=== PATIENT | female | born 1950 | race Caucasian/White ===

== ENCOUNTER 2018-08-01 18:13 | Emergency (ER) | payer MEDICARE, OTHER ==
[~2018-08-01] VITALS: Ht 157.5 cm; Wt 62.6 kg
[~2018-08-01 18:13] MED LIST: ANAS1TAB PO; ASCO-78 PO; CALC600T PO; CYCL-331 PO; HYDR-2155 PO; HYDR50TA6 PO; LEVO100T5 PO; MULT1TAB77 PO; NAPR250T6 PO; OMEG1CAP6 PO; PANT40TA5 PO; VENL37.56 PO
[2018-08-01 18:49] LABS: BASO # 0.1 x10^3/uL (0.0-0.2); BASO % 1 % (0-3); EOS # 0.7 x10^3/uL (0.0-0.7); EOS % 8 % (0-3); HEMATOCRIT 39.8 % (36.0-47.0); HEMOGLOBIN 12.9 g/dL (12.0-15.5); LYMPH # 3.7 x10^3/uL (1.0-4.8); LYMPH % 40 % (24-48); MEAN CORPUSCULAR HEMOGLOBIN 28 pg (25-35); MEAN CORPUSCULAR HGB CONC 33 g/dL (31-37); MEAN CORPUSCULAR VOLUME 85 fL (79-100); MONO # 0.8 x10^3/uL (0.0-1.1); MONO % 9 % (0-9); NEUT % 43 % (31-73); PLATELET COUNT 272 x10^3/uL (140-400); RED BLOOD COUNT 4.68 x10^6/uL (3.50-5.40); RED CELL DISTRIBUTION WIDTH 19.7 % (11.5-14.5); WHITE BLOOD COUNT 9.3 x10^3/uL (4.0-11.0)
[2018-08-01] MEDS: MORPHINE SULFATE 2 MG/ML DISP.SYRIN. IV/SQ PRN (18:50)
[2018-08-01] MEDS: ASPIRIN 325 MG TABLET PO ONE (18:50)
[2018-08-01] MEDS: NITROGLYCERIN SUBLINGUAL 0.4 MG BOTTLE OF 25. SL PRN (18:51)
[2018-08-01 18:59] LABS: CALCIUM 9.8 mg/dL (8.5-10.1); CREATININE 1.2 mg/dL (0.6-1.0); GFR 44.5; POTASSIUM 4.2 mmol/L (3.5-5.1)
[2018-08-01] MEDS ORDERED: ENOXAPARIN ** NOTE DOSE ** SYRINGE SQ ONE (19:16)
--- NOTE | 2018-08-01 19:22 | PHYS DOC ---
Adult General Chief Complaint Chief Complaint chest pain HPI HPI 68 years old female with history of coronary artery disease presented to the emergency department with chest pain substernal radiating to her left arm associated with shortness breath started about 20 minutes ago rated 10 out of 10 described as pressure happened while driving not related to exertion responded to sublingual nitroglycerin emergency department Review of Systems Review of Systems Constitutional: Denies fever or chills [] Eyes: Denies change in visual acuity, redness, or eye pain [] HENT: Denies nasal congestion or sore throat [] Respiratory: Denies cough or shortness of breath [] Cardiovascular: No additional information not addressed in HPI [] GI: Denies abdominal pain, nausea, vomiting, bloody stools or diarrhea [] : Denies dysuria or hematuria [] Musculoskeletal: Denies back pain or joint pain [] Integument: Denies rash or skin lesions [] Neurologic: Denies headache, focal weakness or sensory changes [] Endocrine: Denies polyuria or polydipsia [] All other systems were reviewed and found to be within normal limits, except as documented in this note. Current Medications Current Medications Current Medications Medications (Trade) Dose Ordered Sig/Mary Start Time Stop Time Status Last Admin Dose Admin Aspirin (Aleshia Aspirin) 325 mg 1X ONCE 08/01/18 19:00 08/01/18 19:01 DC 08/01/18 18:50 325 MG Clopidogrel Bisulfate (Plavix) 300 mg 1X ONCE 08/01/18 19:30 08/01/18 19:31 Enoxaparin Sodium (Lovenox 60mg Syringe) 60 mg 1X ONCE 08/01/18 19:15 08/01/18 19:16 UNV Heparin Sodium (Porcine) (Heparin Sodium) 4,000 unit 1X ONCE 08/01/18 19:30 08/01/18 19:30 DC Morphine Sulfate (Morphine 2mg Syringe) 2 mg PRN Q15MIN PRN 08/01/18 18:30 08/02/18 18:29 08/01/18 18:50 2 MG Nitroglycerin (Nitrostat) 0.4 mg PRN Q5MIN PRN 08/01/18 18:30 08/02/18 18:29 08/01/18 18:51 0.4 MG Nitroglycerin/ Dextrose 250 ml @ 3 mls/hr 1X ONCE 08/01/18 19:00 08/05/18 06:19 Ondansetron HCl (Zofran Odt) 4 mg 1X ONCE 08/01/18 19:30 08/01/18 19:31 Allergies Allergies Allergies Coded Allergies Type Severity Reaction Last Updated Verified Tetracyclines Allergy Severe I went into a coma for a while. 11/15/13 Yes Physical Exam Physical Exam Constitutional: Well developed, well nourished, no acute distress, non-toxic appearance. [] HENT: Normocephalic, atraumatic, bilateral external ears normal, oropharynx moist, no oral exudates, nose normal. [] Eyes: PERRLA, EOMI, conjunctiva normal, no discharge. [] Neck: Normal range of motion, no tenderness, supple, no stridor. [] Cardiovascular:Heart rate regular rhythm, no murmur [] Lungs & Thorax: Bilateral breath sounds clear to auscultation [] Abdomen: Bowel sounds normal, soft, no tenderness, no masses, no pulsatile masses. [] Skin: Warm, dry, no erythema, no rash. [] Back: No tenderness, no CVA tenderness. [] Extremities: No tenderness, no cyanosis, no clubbing, ROM intact, no edema. [] Neurologic: Alert and oriented X 3, normal motor function, normal sensory function, no focal deficits noted. [] Psychologic: Affect normal, judgement normal, mood normal. [] Current Patient Data Vital Signs Vital Signs Date Time Temp Pulse Resp B/P (MAP) Pulse Ox O2 Delivery O2 Flow Rate FiO2 08/01/18 18:51 56 181/78 08/01/18 18:50 16 99 Lab Results Laboratory Tests Test 08/01/18 18:20 White Blood Count 9.3 x10^3/uL (4.0-11.0) Red Blood Count 4.68 x10^6/uL (3.50-5.40) Hemoglobin 12.9 g/dL (12.0-15.5) Hematocrit 39.8 % (36.0-47.0) Mean Corpuscular Volume 85 fL (79-100) Mean Corpuscular Hemoglobin 28 pg (25-35) Mean Corpuscular Hemoglobin Concent 33 g/dL (31-37) Red Cell Distribution Width 19.7 % (11.5-14.5) H Platelet Count 272 x10^3/uL (140-400) Neutrophils (%) (Auto) 43 % (31-73) Lymphocytes (%) (Auto) 40 % (24-48) Monocytes (%) (Auto) 9 % (0-9) Eosinophils (%) (Auto) 8 % (0-3) H Basophils (%) (Auto) 1 % (0-3) Neutrophils # (Auto) 4.0 x10^3uL (1.8-7.7) Lymphocytes # (Auto) 3.7 x10^3/uL (1.0-4.8) Monocytes # (Auto) 0.8 x10^3/uL (0.0-1.1) Eosinophils # (Auto) 0.7 x10^3/uL (0.0-0.7) Basophils # (Auto) 0.1 x10^3/uL (0.0-0.2) Sodium Level 140 mmol/L (136-145) Potassium Level 4.2 mmol/L (3.5-5.1) Chloride Level 101 mmol/L (98-107) Carbon Dioxide Level 28 mmol/L (21-32) Anion Gap 11 (6-14) Blood Urea Nitrogen 17 mg/dL (7-20) Creatinine 1.2 mg/dL (0.6-1.0) H Estimated GFR (Cockcroft-Gault) 44.5 Glucose Level 95 mg/dL (70-99) Calcium Level 9.8 mg/dL (8.5-10.1) Troponin I Quantitative < 0.017 ng/mL (0-0.055) Lipase 237 U/L (73-393) EKG EKG [] Radiology/Procedures Radiology/Procedures [] Course & Med Decision Making Course & Med Decision Making Emergency department patient received aspirin, Plavix, Lovenox, nitroglycerin, chest pain improved case discussed with hospitalist patient to be admitted to [facility] [] Final Impression Final Impression [] Problems: (1) Unstable angina Dragon Disclaimer Dragon Disclaimer This electronic medical record was generated, in whole or in part, using a voice recognition dictation system. LANCE WEBB MD Aug 01, 2018 19:21
[2018-08-01] MEDS: ENOXAPARIN ** NOTE DOSE ** SYRINGE SQ ONE (19:26)
[2018-08-01] MEDS: NITROGLYCERIN PREMIX 250 ML IV ONE (19:26)
[2018-08-01] MEDS: CLOPIDOGREL BISULFATE 75 MG TABLET PO ONE (19:27)
[2018-08-01] MEDS ORDERED: HEPARIN for IV BOLUS 10,000 UNIT/10 ML VIAL. IV ONE (19:30)
[2018-08-01] MEDS: ONDANSETRON ODT 4 MG TAB.RAPDIS PO ONE (19:30)
--- NOTE | 2018-08-01 20:35 | RAD ---
AP portable chest 08/01/2018. Reason for exam: Chest pain. Comparison is made with a study of 11/15/2013. Depth of inspiration is shallower. No new infiltrate or effusion is seen. Heart size and pulmonary vascularity appear normal. A hiatal hernia is again seen. IMPRESSION: No apparent acute abnormality. Electronically signed by: Troy Alicea Jr., MD (08/01/2018 8:32 PM) [facility]
[2018-08-01 22:50] VITALS: BP 147/82
--- NOTE | 2018-08-03 12:22 | EKG ---
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
--- NOTE | 2018-08-03 12:33 | EKG ---
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
== END 2018-08-01 22:05 | disposition short-term general hospital (02) ==
LOC: ER 18:13
DX: I20.0 Unstable angina (principal); Z88.1 Allergy status to other antibiotic agents
CPT/HCPCS: 36415; 71045; 80048; 83690; 84484; 85025; 93005; 96365; 96366; 96372; 96375; 99285; J1650; J2270; J3490

== ENCOUNTER → 2018-08-09 | Outpatient (CLI) | payer MEDICARE, OTHER ==
[2018-08-01 22:50] VITALS: BP 147/82
--- NOTE | 2018-08-09 16:54 | RAD ---
EXAM: Nuclear gastric emptying scan. HISTORY: Incomplete gastric emptying. COMPARISON: None. TECHNIQUE: Serial static images were obtained over the stomach following oral administration of 1 mCi of 99m-Tc sulfur colloid in an egg based meal. FINDINGS: The stomach empties into the small bowel without evidence of reflux in the area of the esophagus. There is 24 percent gastric emptying at 59 minutes, 47 percent gastric emptying at 114 minutes, 72 percent gastric emptying at 171 minutes and 88 percent gastric emptying at 236 minutes. The gastric emptying half-time is nearly 2 hours. IMPRESSION: Delayed gastric emptying half-time. Electronically signed by: Orly Coronado MD (08/09/2018 4:51 PM) [facility]
== END | disposition home or self-care (01) ==
LOC: NM 07:34
PROVIDERS: ATTEND Internal Medicine Gastroenterology
DX: K30 Functional dyspepsia (principal)
CPT/HCPCS: 78264; A9541

== ENCOUNTER 2019-10-29 00:14 | Emergency (ER) | payer MEDICARE ==
[~2019-10-29] VITALS: Ht 158.8 cm; Wt 62.5 kg
[~2019-10-29 00:14] MED LIST changes: -PANT40TA5 PO; +PANT40TA6 PO; +VENL-109 PO; -VENL37.56 PO
--- NOTE | 2019-10-29 00:20 | PHYS DOC ---
Past History Past Medical History: Angina, Anxiety, CAD, Cancer, GERD, High Cholesterol, Hypertension, Hypothyroid, TIA Past Medical History Breast Cancer 2011 Past Surgical History: Cholecystectomy Past Surgical History Mastectomy Lt. Smoking: Non-smoker Alcohol Use: None Drug Use: None General Adult HPI: HPI: "..I ve had chest pain..here in the center... since about 6...it s been constant..I take a aspirin at home..." Patient is a 69 year old female who presents with central chest pain that has been constant since 1800. Patient currently rates her pain in the center of her chest as 8 out of 10. Nothing has seemed to make the pain better. Patient has been diaphoretic. Patient has history of previous AR in 2017 and episode of angina in which she had a heart cath in July 2018. Patient at that time she seen Dr. Plummer cardiology.. Patient denies any recent changes in meds. No history of travel outside [facility] no significant ill contacts. Does have past medical history of invasive breast cancer with extensive chemotherapy and mastectomy on the left and 2011. Patient had a cholecystectomy in 2010. Patient does have a history of elevated cholesterol, arthritis, with chronic pain, spinal stenosis with sciatica and peripheral neuropathy, hiatal hernia, hypothyroidism, hypertension, and a TIA. There is a family history of ruptured aortic aneurysm and father age 84 he also has history of stroke, TIA and diabetes. Patient has never used tobacco or alcohol. Pt. follows with as primary. Review of Systems: Review of Systems: Constitutional: Denies fever or chills Eyes: Denies change in visual acuity HENT: Denies nasal congestion or sore throat Respiratory: Denies cough or shortness of breath Cardiovascular: Complaints of chest pain GI: Denies abdominal pain, , vomiting, bloody stools or diarrhea . Complaints of nausea and reflux : Denies dysuria Musculoskeletal: chronic joint pain Integument: Denies rash Neurologic: Denies headache, focal weakness or sensory changes Endocrine: Denies polyuria or polydipsia Lymphatic: Denies swollen glands Psychiatric: Denies depression or anxiety Heart Score: HEART Score for Chest Pain: HEART Score for Chest Pain Response (Comments) Value History Moderately Suspicious 1 ECG Nonspecific Repolarizatio 1 Age > 65 2 Risk Factors >3 Risk Factors or Hx CAD 2 Troponin < Normal Limit 0 Total 6 Risk Factors: Risk Factors: DM, Current or recent (<one month) smoker, HTN, HLP, family history of CAD, obesity. Risk Scores: Score 0 - 3: 2.5% MACE over next 6 weeks - Discharge Home Score 4 - 6: 20.3% MACE over next 6 weeks - Admit for Clinical Observation Score 7 - 10: 72.7% MACE over next 6 weeks - Early Invasive Strategies Family History: Family History: Father ruptured aortic aneurysm and diabetes at age 66 Current Medications: Current Meds: See nursing for home meds Allergies: Allergies: Allergies Coded Allergies Type Severity Reaction Last Updated Verified Tetracyclines Allergy Severe I went into a coma for a while. 11/15/13 Yes Physical Exam: PE: Constitutional: Moderate acute distress, non-toxic appearance. [] HENT: Normocephalic, atraumatic, bilateral external ears normal, oropharynx moist, no oral exudates, nose normal. [] Eyes: PERRLA, EOMI, conjunctiva normal, no discharge. [] Neck: Normal range of motion, no tenderness, supple, no stridor. [] Cardiovascular: Bradycardia heart rate regular rhythm, no murmur []PM slightly to Lt. . Occasional PVC and PAC on monitor. Lungs & Thorax: Bilateral breath sounds equal at apex on auscultation [,] mastectomy scar on left Abdomen: Bowel sounds normal, soft, epigastric tenderness, no masses, no pulsatile masses. Old surgery scars Skin: Warm, dry, no erythema, no rash. Poor Turgor Back: No tenderness, no CVA tenderness. [] Extremities: No tenderness, no cyanosis, no clubbing, ROM , no edema. [] Arthritic changes. No cording appreciated Neurologic: Alert and oriented X 3, move all ext. on request, has decreased plantar sensation, , no focal deficits noted. [] Psychologic: Affect anxious, judgement normal, mood normal. [] EKG: EKG: My interpretation EKG shows a sinus bradycardia at 46 bpm. No findings of acute STEMI with contralateral changes. Monitor does occasionally show PAC [] and PVC. Radiology/Procedures: Radiology/Procedures: [][address] [place] [id number] IMAGING REPORT Signed PATIENT: JACI GOMEZ ACCOUNT: [id number] : 1950 LOCATION: ER AGE: 69 SEX: F EXAM STATUS: REG ER ORD. PHYSICIAN: LYLE BALDWIN MD REASON: cp PROCEDURE: PORTABLE CHEST 1V EXAM: CHEST ONE VIEW. HISTORY: Chest pain. COMPARISON: 08/01/2018. FINDINGS: A frontal view of the chest is obtained. There are no confluent infiltrates. There is mild left basilar atelectasis. There is no pneumothorax or pleural effusion. The heart is not enlarged. There is a moderate hiatal hernia. IMPRESSION: 1. Moderate hiatal hernia. No confluent infiltrates. Electronically signed by: Slade Whelan MD (10/29/2019 1:13 AM) [facility] DICTATED AND SIGNED BY: ANNE WHELAN MD DATE: 10/29/19112 CC: LYLE BALDWIN MD; LISA MUNOZ MD ~ Course & Med Decision Making: Course & Med Decision Making Pertinent Labs and Imaging studies reviewed. (See chart for details) Discussed presentation, testing and Tx. plan with Dr. Collier, advised transfer to [facility]. Pt. admitted to Dr Bonilla with a consult to Dr. Plummer. Possible GI consult if pain appears to be GI related.- Currently Elevated Lipase Impression: 1. Chest Pain 2. Epigastric Pain 3. HTN 4. Bradycardia 5. Elevated Lipase 434 [] Dragon Disclaimer: Dragon Disclaimer: This electronic medical record was generated, in whole or in part, using a voice recognition dictation system. Departure Departure: Disposition: HOME/RESIDENCE PRIOR TO ADM Condition: STABLE Referrals: LISA MUNOZ MD (PCP) Dragon Disclaimer This chart was dictated in whole or in part using Voice Recognition software in a busy, high-work load, and often noisy Emergency Department environment. It may contain unintended and wholly unrecognized errors or omissions. Dragon Disclaimer This chart was dictated in whole or in part using Voice Recognition software in a busy, high-work load, and often noisy Emergency Department environment. It may contain unintended and wholly unrecognized errors or omissions. Dragon Disclaimer This chart was dictated in whole or in part using Voice Recognition software in a busy, high-work load, and often noisy Emergency Department environment. It may contain unintended and wholly unrecognized errors or omissions. LYLE BALDWIN MD October 29, 2019 00:20
[2019-10-29] MEDS ORDERED: IV RINGERS SOLUTION,LACTATED 1,000 ML IV SCH ×2 (00:30→02:00)
[2019-10-29] MEDS ORDERED: ENOXAPARIN ** NOTE DOSE ** SYRINGE SQ ONE ×2 (00:30)
[2019-10-29] MEDS ORDERED: NITROGLYCERIN OINT 1 GM PACKET. TP ONE (00:30)
[2019-10-29] MEDS ORDERED: MORPHINE SULFATE 2 MG/ML DISP.SYRIN. IV ONE (00:30)
[2019-10-29 01:01] LABS: ANION GAP 6 (6-14); BLOOD UREA NITROGEN 29 mg/dL (7-20); CALCIUM 9.6 mg/dL (8.5-10.1); CARBON DIOXIDE 31 mmol/L (21-32); CHLORIDE 99 mmol/L (98-107); CREATININE 0.9 mg/dL (0.6-1.0); GFR 61.9; GLUCOSE 126 mg/dL (70-99); POTASSIUM 5.3 mmol/L (3.5-5.1); SODIUM 136 mmol/L (136-145)
[2019-10-29 01:14] LABS: BASO # 0.1 x10^3/uL (0.0-0.2); BASO % 1 % (0-3); EOS # 1.8 x10^3/uL (0.0-0.7); EOS % 17 % (0-3); HEMATOCRIT 41.6 % (36.0-47.0); LYMPH # 2.6 x10^3/uL (1.0-4.8); LYMPH % 25 % (24-48); MEAN CORPUSCULAR HEMOGLOBIN 33 pg (25-35); MEAN CORPUSCULAR HGB CONC 34 g/dL (31-37); MEAN CORPUSCULAR VOLUME 97 fL (79-100); MONO # 0.7 x10^3/uL (0.0-1.1); MONO % 6 % (0-9); NEUT # 5.6 x10^3uL (1.8-7.7); NEUT % 52 % (31-73); PLATELET COUNT 198 x10^3/uL (140-400); RED BLOOD COUNT 4.29 x10^6/uL (3.50-5.40); RED CELL DISTRIBUTION WIDTH 14.5 % (11.5-14.5); WHITE BLOOD COUNT 10.8 x10^3/uL (4.0-11.0)
[2019-10-29 01:16] LABS: ALBUMIN 3.6 g/dL (3.4-5.0); ALK PHOS 75 U/L (46-116); ALT (SGPT) 32 U/L (14-59); AST (SGOT) 53 U/L (15-37); LIPASE 434 U/L (73-393); MAGNESIUM 2.2 mg/dL (1.8-2.4); TOTAL BILIRUBIN 0.7 mg/dL (0.2-1.0); TOTAL PROTEIN 7.1 g/dL (6.4-8.2)
--- NOTE | 2019-10-29 01:16 | RAD ---
EXAM: CHEST ONE VIEW. HISTORY: Chest pain. COMPARISON: 08/01/2018. FINDINGS: A frontal view of the chest is obtained. There are no confluent infiltrates. There is mild left basilar atelectasis. There is no pneumothorax or pleural effusion. The heart is not enlarged. There is a moderate hiatal hernia. IMPRESSION: 1. Moderate hiatal hernia. No confluent infiltrates. Electronically signed by: Slade Whelan MD (10/29/2019 1:13 AM) [facility]
[2019-10-29 01:22] LABS: DIRECT BILIRUBIN < 0.1 mg/dL (0.0-0.2)
[2019-10-29] MEDS ORDERED: ONDANSETRON PF 4 MG/2 ML VIAL. IVP PRN (01:45)
[2019-10-29] MEDS ORDERED: ACETAMINOPHEN 325 MG TABLET PO PRN (01:45)
[2019-10-29] MEDS ORDERED: MORPHINE SULFATE 2 MG/ML DISP.SYRIN. IVP PRN (01:45)
[2019-10-29 02:00] VITALS: BP 118/49
[2019-10-29] MEDS ORDERED: FAMOTIDINE 20 MG/2 ML VIAL IVP ONE (02:00)
[2019-10-29] MEDS ORDERED: MAGNESIUM HYDROXIDE 2,400 MG/30 ML ORAL.SUSP. PO ONE (02:00)
[2019-10-29] MEDS ORDERED: SUCRALFATE 1 GM TABLET. PO ONE (02:00)
--- NOTE | 2019-10-29 04:59 | EKG ---
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
[2019-10-29] MEDS ORDERED: NITROGLYCERIN OINT 1 GM PACKET. TP SCH (06:00)
[2019-10-29] MEDS ORDERED: ASPIRIN CHEWABLE 81 MG TABLET. PO SCH (08:00)
[2019-10-29] MEDS ORDERED: ENOXAPARIN ** NOTE DOSE ** SYRINGE SQ SCH (09:00)
[2019-10-29] MEDS ORDERED: FAMOTIDINE 20 MG/2 ML VIAL IVP SCH (09:00)
[2019-10-29 10:38] LABS: THYROID STIM HORMONE (TSH) 8.831 uIU/mL (0.358-3.740)
== END 2019-10-29 03:20 | disposition short-term general hospital (02) ==
LOC: ER 00:14
DX: R07.89 Other chest pain (principal); R10.13 Epigastric pain; I10 Essential (primary) hypertension; R00.1 Bradycardia, unspecified; R74.8 Abnormal levels of other serum enzymes; E78.00 Pure hypercholesterolemia, unspecified; M19.90 Unspecified osteoarthritis, unspecified site; G89.29 Other chronic pain; E03.9 Hypothyroidism, unspecified; E11.42 Type 2 diabetes mellitus with diabetic polyneuropathy; K21.9 Gastro-esophageal reflux disease without esophagitis; I25.10 Atherosclerotic heart disease of native coronary artery without angina pectoris; Z86.73 Personal history of transient ischemic attack (TIA), and cerebral infarction without residual deficits; Z88.1 Allergy status to other antibiotic agents
CPT/HCPCS: 36415; 71045; 80048; 80061; 80076; 82150; 82550; 83690; 83735; 83880; 84443; 84484; 85025; 85379; 85610; 85730; 93005; 96372; 96374; 96375; 99285; J1650; J2270; J3490; J7120